=== PATIENT | male | born 1960 | race Two or more races ===

== ENCOUNTER 2023-08-05 13:29 | Emergency (ER) | payer MEDICAID ==
[~2023-08-05] VITALS: Ht 165.1 cm; Wt 81.7 kg
[2023-08-05 15:09] VITALS: BP 151/83; RESP 16; TEMP 97.7; O2SAT 96
[2023-08-05 15:10] VITALS: PULSE 93
[2023-08-05] MEDS ORDERED: HYDROcodone-ACET 5/325MG TAB PO ONE (15:45)
[2023-08-05] MEDS ORDERED: IBUP-1456 PO (16:30)
== END 2023-08-05 16:37 | disposition home or self-care (01) ==
LOC: ER 13:29
DX: S93.491A Sprain of other ligament of right ankle, initial encounter (principal); Z79.899 Other long term (current) drug therapy; X58.XXXA Exposure to other specified factors, initial encounter; Y93.01 Activity, walking, marching and hiking; Y92.89 Other specified places as the place of occurrence of the external cause; Y99.8 Other external cause status
CPT/HCPCS: 29515; 73610